=== PATIENT | female | born 1990 | race Asian ===

== ENCOUNTER 2020-02-06 18:31 | Emergency (ER) | payer MEDICAID ==
[~2020-02-06] VITALS: Ht 167.6 cm; Wt 124.7 kg
[2020-02-06 18:47] VITALS: BP 135/84
--- NOTE | 2020-02-06 18:49 | NUR ---
ED Nurse Note: Pt ambulated to ED d/t abdominal pain 12/17 since yesterday. Pt had 2 positive and 2 neg tests since yesterday. No NVD. Want to have US. Pt is AOx4, calm and cooperative, VSS, on RA, afebrile on triage. Placed on bed.
[2020-02-06 19:08] LABS: APPEARANCE,URINE CLEAR; BASOPHILS % (AUTO) 0.6 % (0.0-2.0); BILIRUBIN, URINE NEGATIVE (NEGATIVE); COLOR,URINE PALE YELLOW; EOSINOPHILS % (AUTO) 2.2 % (0.0-3.0); GLUCOSE, URINE (UA) NEGATIVE (NEGATIVE); HEMATOCRIT 36.4 % (37.0-47.0); HEMOGLOBIN 11.7 G/DL (12.0-16.0); KETONES,URINE NEGATIVE (NEGATIVE); LEUKOCYTE ESTERASE ,URINE 1+ (NEGATIVE); LYMPHOCYTES % (AUTO) 24.8 % (20.0-45.0); MEAN CORPUSCULAR VOLUME 79 FL (80-99); MONOCYTES % (AUTO) 6.3 % (1.0-10.0); NEUTROPHILS % (AUTO) 66.1 % (45.0-75.0); NITRITE,URINE NEGATIVE (NEGATIVE); PH,URINE 8 (4.5-8.0); PLATELET COUNT 350 K/UL (150-450); PROTEIN,URINE NEGATIVE (NEGATIVE); RED BLOOD COUNT 4.61 M/UL (4.20-5.40); RED CELL DISTRIBUTION WIDTH 14.3 % (11.6-14.8); UROBILINOGEN,URINE NORMAL MG/DL (0.0-1.0); WHITE BLOOD COUNT 11.6 K/UL (4.8-10.8)
--- NOTE | 2020-02-06 19:14 | Emergency Room Report ---
History of Present Illness General Chief Complaint: Female Urogenital Problems Source: Patient Present Illness HPI Patient is 29-year-old female with PMHx L ovarian cyst presents with chief complaint of bilateral lower quadrant abdominal pain since yesterday. She was told to go to the ER from an urgent care for further evaluation. Patient's last mental period was January 02. She had her IUD removed 1 week prior to her LMP by because she is trying to become . She took several tests yesterday which gave her different results. 2 were positive, 2 were negative. She denies fever, flank pain, vaginal bleeding, nausea, vomiting, diarrhea, chest pain, shortness of breath, hemoptysis, leg swelling, weakness, melena, hematochezia, dysuria, vaginal discharge or concern for sexually transmitted infection. She reports normal diet and normal bowel movements The patient's symptoms were gradual onset, severity was moderate, duration since 2 days. Quality: Aching Has not tried any medication to alleviate her symptoms. Past medical history: L ovarian cyst Past surgical history: Cholecystectomy 2019 Smoking: Denies Alcohol use: Denies Drug use: Denies Review of systems: CONST: No fevers or chills, No night sweats PULMONARY: No productive cough, No shortness of breath CARDIAC: No chest pain, No palpitations GI: No vomiting, No diarrhea , No melena_or_BRBPR : No dysuria, No hematuria, No discharge NEURO: No new_focal_weakness_or_numbness, No confusion, No vision changes 14 point Review of Systems is otherwise negative except per HPI Physical Exam: GENERAL: Awake_alert_ nontoxic, no acute distress Spo2 97% on RA -normal. Obese. EYES: Extraocular muscles are intact. Conjunctivae clear. Lids without swelling ENT: External nose and ear normal_in_appearance. Oropharynx clear. Head_ atraumatic, Moist_oral_mucosa NECK: No JVD. No meningismus. No thyromegaly. Supple. Trachea midline RESP: Normal respiratory effort. Symmetric rise. No stridor. Clear_to_ auscultation_No_rales_No_wheezes No CVA TTP. CARDIAC: Regular rate and regular rhythm. No_significant pedal edema. ABDOMEN: Soft. Nondistended. Nontender_No_rebound_or_guarding. MSK: Normal muscle tone, without rigidity. Extremities without asymmetric deformity or swelling. SKIN: Warm and dry. No visible cyanosis or pallor NEUROLOGIC: Alert, oriented x3. Motor_and_sensation_grossly_intact. No truncal ataxia. Gait_normal Psych: Normal mood and affect, normal judgment and insight - COORDINATION OF CARE Case was discussed with: Patient Any labs and imaging that were ordered were interpreted as part of the medical decision making: Medical Decision Making/Plan: Differential diagnosis includes UTI, , ectopic , diverticulitis, ovarian torsion, hemorrhagic ovarian cyst, PID (pelvic inflammatory disease), kidney stone, UTI DOUBT appendicitis, small bowel obstruction, volvulus, AAA, pancreatitis, among others. Patient is well-appearing with stable vital signs. Abdominal exam is non peritoneal with no guarding or rebound. No flank pain or ecchymosis. Labs show leukocytosis of 11.6. Also has mild urinary tract infection. No evidence of pyelonephritis or SAMUEL. Doubt retained/infected kidney stone. She is incidentally noted to have mild microcytic anemia. She denies vaginal bleed, GI bleed, or any kind of hemorrhage. No acute indication for blood transfusion at this time. Beta HCG is 929, which is low for her stated EGA of 5 weeks. (LMP was January 02) Rh is positive. No indication for rhogam. Vaginal Ultra-Sound shows no IUP. No ovarian torsion or TOA. +L ovarian cyst. Due to concern for ectopic , Dr David Vazquez was consulted from [facility]. He reviewed patient's lab and ultrasound imaging. At this time, states it may be too early to definitively diagnose an ectopic and since patient is stable and risk of ectopic rupture is low, that patient can be managed with close follow up. ----He recommends follow-up bHCG, progesterone level, and vaginal ultrasound in 48 hrs to evaluate for any change. ----Does not recommend starting methotrexate right now because it can be too early to tell for sure if there is an ectopic. ED intervention: First dose of keflex for UTI Patient was counseled and educated at length regarding her diagnosis. I educated her on the potential for ectopic , and also about the low likelihood that she has a ruptured ectopic at this time. She demonstrates the capacity to understand her diagnosis and the need for prompt follow up within 24 -48 hrs to confirm the diagnosis. She has a PMD assigned on her health net card which she states she can call for close follow-up, but I have instructed her to return to ED for repeat labs if she is unable to get an appointment on Saturday. 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 Over the course of their emergency department stay, serial abdominal exams were performed. The patients symptoms significantly improved, exam upon discharge revealed a benign abdomen, and tolerating oral fluids. Pertinent results reviewed with the patient. I educated the patient on the current treatment plan including the risks, benefits, and alternatives. I also discussed the extent and limitations of the current evaluation. The patient expressed understanding and agreement with plan. I recommended PMD/ER follow-up within 1-2 days. Also advised that the patient return to the Emergency Department as soon as possible if they experience any new, persistent, or worsening symptoms. Strict return precautions for ruptured ectopic discussed including severe abdominal pain, vaginal bleeding, syncope, flank pain or other symptoms. Patient states she will call 911 in case any of these red flag symptoms arise. 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 Patient History Last Menstrual Period: 01/02 : 2 Para: 2 Nursing Documentation-PMH Past Medical History: No History, Except For Hx COPD: No - EXZEMA Hx Gastrointestinal Problems: Yes - CHOLECYSTECOMY, OVARIAN CYSTS Physical Exam Vital Signs Date Time Temp Pulse Resp B/P (MAP) Pulse Ox O2 Delivery O2 Flow Rate FiO2 02/06/20 18:39 98.2 85 16 135/84 (101) 97 Room Air Sp02 EP Interpretation: reviewed, normal Medical Decision Making Diagnostic Impression: Primary Impression: Abdominal pain Additional Impressions: UTI (urinary tract infection) Left ovarian cyst CT/MRI/US Diagnostic Results CT/MRI/US Diagnostic Results : Impression US OB 1st Trimester Gestation EXAM: US First Trimester , Transabdominal and Transvaginal CLINICAL HISTORY: Ovarian cysts. Pelvic pain. Positive . LMP 01/03/2020. FINDINGS: No evidence of intrauterine . Not an unexpected finding given a beta hCG at 949. Endometrial thickening measuring up to 14.4 mm. Probable functional cyst left ovary. Small to moderate amount of free fluid in the dependent pelvis. Ectopic cannot be excluded in the absence of identifying a normal IUP. Recommend serial follow-up beta hCG. Dictated By: Cameron Hinkle DO Last Vital Signs Date Time Temp Pulse Resp B/P (MAP) Pulse Ox O2 Delivery O2 Flow Rate FiO2 02/06/20 18:47 98.2 16 135/84 97 Room Air 02/06/20 18:39 85 Disposition: HOME, SELF-CARE Admit Decision Time: 19:14 Condition: Stable Scripts Acetaminophen* (TYLENOL EXTRA STRENGTH*) 500 Mg Tablet 500 MG ORAL Q8H PRN for Prn Headache/Temp > 101, #20 TAB 0 Refills Prov: Abril Tadeo D.O. 02/06/20 Cephalexin* (KEFLEX*) 500 Mg Capsule 500 MG ORAL EVERY 12 HOURS, #14 CAP 0 Refills Prov: Abril Tadeo D.O. 02/06/20 Patient Instructions: Abdominal Pain During , [id number], Urinary Tract Infection Additional Instructions: Instructions for patient/elementary school principal: Follow up with your physician in 1 to 2 days for repeat abdominal examination. You are found to have a urinary tract infection on your urinalysis.. Please proceed to [facility] for regular care. YOU MAY HAVE A POTENTIAL ECTOPIC BUT IT IS TOO EARLY TO TELL SO YOU NEED TO RETURN TO ER IN 24-48 HOURS FOR REPEAT LABS AND ULTRASOUND. Follow-up with your doctor sooner if your condition requires a more timely clinical reevaluation. Return to the emergency department OR CALL 911 immediately if you feel that your condition is worsening or if you have any new or concerning symptoms. Review your discharge instructions and take any prescriptions given as instructed. Abril Tadeo D.O. Feb 06, 2020 19:14
[2020-02-06 19:19] LABS: ANION GAP 9 mmol/L (5-15); BLOOD UREA NITROGEN 12 mg/dL (7-18); CALCIUM 8.9 MG/DL (8.5-10.1); CARBON DIOXIDE 25 MMOL/L (21-32); CHLORIDE 104 MMOL/L (98-107); CREATININE 0.6 MG/DL (0.55-1.30); POTASSIUM 3.9 MMOL/L (3.5-5.1); SODIUM 138 MMOL/L (136-145)
[2020-02-06] MEDS ORDERED: TYLENOL EXTRA500 MG ORAL (19:19)
[2020-02-06] MEDS ORDERED: CEPHALEXIN500 MG ORAL (19:19)
--- NOTE | 2020-02-06 19:22 | NUR ---
ED Nurse Note: hand off given to Shalini EDWARDS.
[2020-02-06 19:23] LABS: ALANINE AMINOTRANSFERASE 22 U/L (12-78); ALBUMIN 3.4 G/DL (3.4-5.0); ALBUMIN/GLOBULIN RATIO 0.8 (1.0-2.7); ALKALINE PHOSPHATASE 69 U/L (46-116); ASPARTATE AMINO TRANSFERASE 15 U/L (15-37); BILIRUBIN,TOTAL 0.1 MG/DL (0.2-1.0)
[2020-02-06] MEDS ORDERED: Cephalexin 500mg cap ORAL ONE (19:30)
--- NOTE | 2020-02-06 20:11 | NUR ---
Nurse Note: Pt able to tolerate oral fluids. US at bedside; all safety measures met; will continue to montior.
--- NOTE | 2020-02-06 21:08 | Diagnostic Imaging Report ---
EXAM: US First Trimester , Transabdominal and Transvaginal CLINICAL HISTORY: Ovarian cysts. Pelvic pain. Positive . LMP 01/03/2020. TECHNIQUE: Real-time transabdominal and transvaginal obstetrical ultrasound of the maternal pelvis and a first trimester with image documentation. Transvaginal imaging was used for better evaluation of the fetus and adnexa. COMPARISON: No relevant prior studies available. FINDINGS: No evidence of intrauterine . Not an unexpected finding given a beta hCG at 949. Endometrial thickening measuring up to 14.4 mm. Probable functional cyst left ovary. Small to moderate amount of free fluid in the dependent pelvis. Ectopic cannot be excluded in the absence of identifying a normal IUP. Recommend serial follow-up beta hCG.
[2020-02-06 23:15] VITALS: BP 132/78
--- NOTE | 2020-02-06 23:15 | NUR ---
ER DISCHARGE NOTE: Patient is cleared to be discharged per ERMD. Pt is aox4, on room air, with stable vital signs. Pt was given dc and prescription instructions. Pt was able to verbalize understanding; instructed pt to follow up with primary care physican within one week. Pt id band and iv site removed without complications; IV site clean and bandaged. Pt is able to ambulate with steady gait. Pt took all belongings.
== END 2020-02-06 23:15 | disposition home or self-care (01) ==
LOC: EMR 19:15
DX: N39.0 Urinary tract infection, site not specified (principal); Z90.49 Acquired absence of other specified parts of digestive tract; E66.9 Obesity, unspecified; D72.829 Elevated white blood cell count, unspecified; D50.9 Iron deficiency anemia, unspecified; N83.202 Unspecified ovarian cyst, left side
CPT/HCPCS: 36415; 76801; 76817; 80053; 81003; 81025; 83690; 84702; 85025; 86850; 86900; 86901; Z7502; 99284

== ENCOUNTER 2020-02-08 19:03 | Emergency (ER) | payer MEDICAID ==
[~2020-02-08] VITALS: Ht 167.6 cm; Wt 124.7 kg
[~2020-02-08 19:03] MED LIST: CEPHALEXIN500 MG ORAL; TYLENOL EXTRA500 MG ORAL
--- NOTE | 2020-02-08 19:11 | NUR ---
ED Nurse Note: Pt ambulated to ED from home c/o abdominal pain for 3 days, pt is 5 weeks , denies vaginal bleeding. Pt is A&Ox4, VSS, pt was told by her OB to come to ER if pain persists
--- NOTE | 2020-02-08 19:33 | Emergency Room Report ---
History of Present Illness General Chief Complaint: Complications Source: Patient Present Illness HPI 29-year-old G3, P2 here with abdominal pain. The patient was here 2 days ago with similar complaints and she had a pelvic ultrasound which did not show an IUP. Patient was told to come back to the emergency department in 2 days time for a repeat ultrasound and repeat quantitative hCG. Patient says that her abdominal pain has continued and has slightly worsened. Is located diffusely in the abdomen and poorly localized and radiates to the bilateral flanks. No fevers, chills, chest pain, palpitations, shortness of breath, nausea, vomiting , diarrhea, dysuria, vaginal discharge, vaginal bleeding. 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 Patient History Last Menstrual Period: 01/03/20 Now: Yes - 5 weeks : 3 Para: 2 Nursing Documentation-[facility] Past Medical History: No History, Except For Hx COPD: No - eczema Hx Gastrointestinal Problems: Yes - CHOLECYSTECOMY, OVARIAN CYSTS Review of Systems All Other Systems: negative except mentioned in HPI Physical Exam Vital Signs Date Time Temp Pulse Resp B/P (MAP) Pulse Ox O2 Delivery O2 Flow Rate FiO2 02/08/20 19:06 98.1 91 17 128/81 (97) 98 Room Air Sp02 EP Interpretation: reviewed, normal General Appearance: no apparent distress, alert, non-toxic Head: normocephalic, atraumatic Eyes: bilateral eye normal inspection, bilateral eye PERRL ENT: hearing grossly normal, normal pharynx, no angioedema, normal voice Neck: full range of motion, supple/symm/no masses Respiratory: chest non-tender, lungs clear, normal breath sounds, speaking full sentences Cardiovascular #1: regular rate, rhythm, no edema Cardiovascular #2: 2+ carotid (R), 2+ carotid (L), 2+ radial (R), 2+ radial (L) , 2+ dorsalis pedis (R), 2+ dorsalis pedis (L) Gastrointestinal: normal bowel sounds, non tender, soft, non-distended, no guarding, no rebound Rectal: deferred Genitourinary: normal inspection, no CVA tenderness Musculoskeletal: back normal, normal range of motion, gait/station normal, non- tender Neurologic: alert, motor strength/tone normal, sensory intact, responsive, speech normal Psychiatric: judgement/insight normal, memory normal, mood/affect normal, no suicidal/homicidal ideation Lymphatic: no adenopathy Medical Decision Making Diagnostic Impression: Primary Impression: Ectopic Additional Impression: Abdominal pain ER Course Laboratory Tests Test 02/08/20 19:15 02/08/20 19:40 Urine Color Yellow Urine Appearance Slightly cloudy Urine pH 6 (4.5-8.0) Urine Specific Rosalia 1.020 (1.005-1.035) Urine Protein 1+ (NEGATIVE) H Urine Glucose (UA) Negative (NEGATIVE) Urine Ketones 3+ (NEGATIVE) H Urine Blood 1+ (NEGATIVE) H Urine Nitrite Negative (NEGATIVE) Urine Bilirubin Negative (NEGATIVE) Urine Urobilinogen Normal MG/DL (0.0-1.0) Urine Leukocyte Esterase 3+ (NEGATIVE) H Urine RBC 10-15 /HPF (0 - 2) H Urine WBC 30-40 /HPF (0 - 2) H Urine Squamous Epithelial Cells Many /LPF (NONE/OCC) H Urine Bacteria Many /HPF (NONE) H White Blood Count 10.1 K/UL (4.8-10.8) Red Blood Count 4.35 M/UL (4.20-5.40) Hemoglobin 11.1 G/DL (12.0-16.0) L Hematocrit 34.6 % (37.0-47.0) L Mean Corpuscular Volume 79 FL (80-99) L Mean Corpuscular Hemoglobin 25.4 PG (27.0-31.0) L Mean Corpuscular Hemoglobin Concent 32.0 G/DL (32.0-36.0) Red Cell Distribution Width 14.3 % (11.6-14.8) Platelet Count 339 K/UL (150-450) Mean Platelet Volume 5.3 FL (6.5-10.1) L Neutrophils (%) (Auto) 62.9 % (45.0-75.0) Lymphocytes (%) (Auto) 27.0 % (20.0-45.0) Monocytes (%) (Auto) 6.4 % (1.0-10.0) Eosinophils (%) (Auto) 3.1 % (0.0-3.0) H Basophils (%) (Auto) 0.7 % (0.0-2.0) Sodium Level 138 MMOL/L (136-145) Potassium Level 4.0 MMOL/L (3.5-5.1) Chloride Level 103 MMOL/L (98-107) Carbon Dioxide Level 26 MMOL/L (21-32) Anion Gap 9 mmol/L (5-15) Blood Urea Nitrogen 10 mg/dL (7-18) Creatinine 0.9 MG/DL (0.55-1.30) Estimated Glomerular Filtration Rate > 60 mL/min (>60) Glucose Level 84 MG/DL (74-106) Calcium Level 8.6 MG/DL (8.5-10.1) Total Bilirubin 0.2 MG/DL (0.2-1.0) Aspartate Amino Transferase (AST) 17 U/L (15-37) Alanine Aminotransferase (ALT) 21 U/L (12-78) Alkaline Phosphatase 73 U/L (46-116) Total Protein 7.4 G/DL (6.4-8.2) Albumin 3.4 G/DL (3.4-5.0) Globulin 4.0 g/dL Albumin/Globulin Ratio 0.9 (1.0-2.7) L Lipase 104 U/L (73-393) Human Chorionic Gonadotropin, Quant 2583 mIU/mL (1-6) H Pelvic ultrasound: No intrauterine identified. Indeterminate complex bilateral adnexal masses measuring 4.8 cm in the right and three-point centimeters on the left. External not excluded. 29-year-old female here with abdominal pain. Patient is G3, P2 and was here 2 days ago with abdominal pain and had an indeterminate pelvic ultrasound. At that time hCG was 130. hCG today is 2600. Pelvic ultrasound did not reveal any IUP. However there were bilateral adnexal masses four-point centimeter on the right and 3.9 cm on the left. I spoke with the W[employer] PROJECT MANAGER physician Dr. Zamora who agreed that this appears to be an ectopic . He also agreed that the patient is an ideal candidate for methotrexate treatment. I explained these findings with the patient who expressed understanding and agreed to methotrexate treatment. There is no methotrexate available at the hospital. Currently attempting to obtain methotrexate. [facility]. Last Vital Signs Date Time Temp Pulse Resp B/P (MAP) Pulse Ox O2 Delivery O2 Flow Rate FiO2 02/08/20 19:06 98.1 91 17 128/81 (97) 98 Room Air [facility] Gerardo Romero M.D. Feb 08, 2020 19:33
[2020-02-08 19:37] LABS: APPEARANCE,URINE SLIGHTLY CLOUDY; BILIRUBIN, URINE NEGATIVE (NEGATIVE); GLUCOSE, URINE (UA) NEGATIVE (NEGATIVE); KETONES,URINE 3+ (NEGATIVE); LEUKOCYTE ESTERASE ,URINE 3+ (NEGATIVE); NITRITE,URINE NEGATIVE (NEGATIVE); PH,URINE 6 (4.5-8.0); PROTEIN,URINE 1+ (NEGATIVE); UROBILINOGEN,URINE NORMAL MG/DL (0.0-1.0)
[2020-02-08 19:43] LABS: COLOR,URINE YELLOW
--- NOTE | 2020-02-08 20:05 | NUR ---
ED Nurse Note: US at bedside
[2020-02-08 20:28] LABS: ANION GAP 9 mmol/L (5-15); BLOOD UREA NITROGEN 10 mg/dL (7-18); CALCIUM 8.6 MG/DL (8.5-10.1); CARBON DIOXIDE 26 MMOL/L (21-32); CHLORIDE 103 MMOL/L (98-107); CREATININE 0.9 MG/DL (0.55-1.30); SODIUM 138 MMOL/L (136-145)
[2020-02-08 20:30] LABS: BASOPHILS % (AUTO) 0.7 % (0.0-2.0); EOSINOPHILS % (AUTO) 3.1 % (0.0-3.0); HEMATOCRIT 34.6 % (37.0-47.0); HEMOGLOBIN 11.1 G/DL (12.0-16.0); MEAN CORPUSCULAR VOLUME 79 FL (80-99); MONOCYTES % (AUTO) 6.4 % (1.0-10.0); NEUTROPHILS % (AUTO) 62.9 % (45.0-75.0); PLATELET COUNT 339 K/UL (150-450); RED BLOOD COUNT 4.35 M/UL (4.20-5.40); RED CELL DISTRIBUTION WIDTH 14.3 % (11.6-14.8); WHITE BLOOD COUNT 10.1 K/UL (4.8-10.8)
[2020-02-08 20:32] LABS: ALANINE AMINOTRANSFERASE 21 U/L (12-78); ALBUMIN 3.4 G/DL (3.4-5.0); ALBUMIN/GLOBULIN RATIO 0.9 (1.0-2.7); ALKALINE PHOSPHATASE 73 U/L (46-116); ASPARTATE AMINO TRANSFERASE 17 U/L (15-37); BILIRUBIN,TOTAL 0.2 MG/DL (0.2-1.0)
[2020-02-08] MEDS ORDERED: Acetaminophen 500mg (ES) tab ORAL ONE (21:00)
--- NOTE | 2020-02-08 21:56 | Diagnostic Imaging Report ---
EXAM: US , Limited CLINICAL HISTORY: PAIN TECHNIQUE: Real-time limited ultrasound of the maternal uterus with image documentation. COMPARISON: 02/06/20 FINDINGS: Uterus: Uterus measures 9.8 x 4.9 x 5.9 cm. Thickened endometrium measures up to 22 mm. Similar small cystic structure and adjacent complex fluid in the endometrium measuring up to 4 mm. Adnexa: Complex 4.8 cm right adnexal mass. Complex 3.9 cm left adnexal structure appears separate from the left ovary. Free fluid: Trace pelvic free fluid. IMPRESSION: 1. An intrauterine is not identified. 2. Indeterminate complex bilateral adnexal masses measuring 4.8 cm in the right and 3.9 cm on the left. Ectopic is not excluded. Short interval follow-up and serial serum beta hCGs are recommended.
--- NOTE | 2020-02-08 21:57 | Diagnostic Imaging Report ---
EXAM: US First Trimester , Transabdominal CLINICAL HISTORY: PAIN TECHNIQUE: Real-time transabdominal obstetrical ultrasound of the maternal pelvis and a first trimester with image documentation. COMPARISON: No relevant prior studies available. FINDINGS: Uterus: Uterus measures 9.8 x 4.9 x 5.9 cm. Thickened endometrium measures up to 22 mm. Similar small cystic structure and adjacent complex fluid in the endometrium measuring up to 4 mm. Adnexa: Complex 4.8 cm right adnexal mass. Complex 3.9 cm left adnexal structure appears separate from the left ovary. Free fluid: Trace pelvic free fluid. IMPRESSION: 1. 1. An intrauterine is not identified. 2. 2. Indeterminate complex bilateral adnexal masses measuring 4.8 cm in the right and 3.9 cm on the left. Ectopic is not excluded. Short interval follow-up and serial serum beta hCGs are recommended.
--- NOTE | 2020-02-08 22:45 | NUR ---
ED Nurse Note: Per Dr Petty, give 150mg Methotrexate IM once for ectopic , no medicaton order found due to pharmacy being closed, [employer] supervisor and ERMD aware. Pt tolerated well
[2020-02-08] MEDS ORDERED: IBUPROFEN600 M1 ORAL (22:56)
[2020-02-08] MEDS ORDERED: HYDROCODON-ACE1 EA15 ORAL (22:56)
[2020-02-08 23:00] VITALS: BP 132/85
--- NOTE | 2020-02-08 23:00 | NUR ---
ER DISCHARGE NOTE: Patient is cleared to be discharged per ERMD, pt is aox4, on room air, with stable vital signs. pt was given dc and prescription instructions, pt was able to verbalize understanding, pt id band and iv site removed without complications. pt is able to ambulate with steady gait. pt took all belongings.
== END 2020-02-08 23:00 | disposition home or self-care (01) ==
LOC: EMR 19:24
DX: O00.90 Unspecified ectopic pregnancy without intrauterine pregnancy (principal); R10.9 Unspecified abdominal pain
CPT/HCPCS: 36415; 76801; 76817; 80053; 81003; 83690; 84702; 85025; 87086; Z7502; 99284